=== PATIENT | male | born 1990 ===

== ENCOUNTER 2021-04-25 09:58 | Emergency (ER) | payer MEDICAID, SELFPAY ==
[2021-04-25 10:08] VITALS: BP 135/79; PULSE 70; RESP 18; TEMP 36.7; O2SAT 99; BMI 25.8
== END 2021-04-25 11:17 | disposition left against medical advice (07) ==
PROVIDERS: Emergency Provider Emergency Medicine
DX: G44.009 Cluster headache syndrome, unspecified, not intractable (principal); F41.9 Anxiety disorder, unspecified; Z79.899 Other long term (current) drug therapy
CPT/HCPCS: 99281

== ENCOUNTER 2023-07-03 06:48 | Emergency (ER) | payer MEDICAID, SELFPAY ==
[2023-07-03 07:07] VITALS: BP 118/71; PULSE 57; RESP 17; TEMP 36.7; O2SAT 100; BMI 21.9
--- NOTE | 2023-07-03 07:54 | ED.FALL ---
HPI - Fall General Chief Complaint: Fall Stated Complaint: fell downstairs, landed on L arm Time Seen by Provider: 07/03/23 07:26 Source: patient Mode of arrival: ambulatory Limitations: no limitations History of Present Illness HPI Narrative: This is a 33-year-old male without significant medical history presenting to the emergency department with complaints of left-sided shoulder/forearm pain status post slip and fall, patient reports he was rushing down the steps, he fell on to his left side/ arm last night around 8 pm. L sided upper extremity pain worse w/ overhead movements. No head strike or lOC. Was able to get up from the ground w/o difficulty. No other reported injuries. Denies CP, sob, headache, vision changes, dizziness, numbness, tingling, abd pain. Not on thinners. Related Data Previous Rx's Medication Instructions Recorded ketorolac 10 mg tablet 10 mg PO TID PRN pain 5 days #15 07/03/23 tabs Allergies Allergy/AdvReac Type Severity Reaction Status Date / Time SEASONAL ALLERGIES Allergy Mild NASAL Uncoded 03/12/20 16:02 STUFFYNESS Review of Systems Review of Systems: Constitutional : No Weight loss, No Fever, No Chills, No Fatigue, No Malaise ENT/Mouth : No sore throat, No Rhinorrhea Eyes: No Eye Pain, No Swelling, No Redness Cardiovascular : No Chest Pain, No SOB, No Dyspnea on Exertion, No Orthopnea, No Edema, No Palpitations Respiratory : No Cough, No Sputum, No Wheezing Gastrointestinal : No Nausea, No Vomiting, No Diarrhea, No Constipation, No abdominal Pain, No Hematochezia, No Melena Genitourinary : No Dysuria, No Urinary Frequency, No Hematuria, Musculoskeletal : + joint pain, No Myalgias, No Joint Swelling Skin : No Skin Lesions, No rash Neuro : No Weakness, No Numbness, No Dizziness, No Headache Psych : No Anxiety/Panic, No Depression All other systems reviewed and are negative Yes all other systems are reviewed and are negative PMFSH Past Medical History Attestation statement: The following information was validated with the patient. Source: old records reviewed and nursing notes reviewed Onset Date is defined in the Problem List Problems that require an onset date and time if occurred within 24 hrs of arrival to the ED Aortic Dissection and Rupture; Neurologic impairment; Cardiopulmonary Arrest; Endotracheal Intubation; Insertion or Replacement of Mechanical Circulatory Assist Device Medical History Depression Anxiety Headache Social History Social History Advance Directives: No Physical Exam Vital Signs: Vital Signs: Last Vital Signs Temp 98.1 F 07/03/23 07:07 Pulse 57 07/03/23 07:07 Resp 17 07/03/23 07:07 BP 118/71 07/03/23 07:07 Pulse Ox 100 07/03/23 07:07 O2 Del Method Room Air 07/03/23 07:07 BMI result Body Mass Index 21.9 vss Appearance: Alert.? Oriented X3.? No acute distress.? Head: Normocephalic, atraumatic, no step-offs or deformities Eyes: Pupils equal, round and reactive to light.? CVS: Normal heart rate and rhythm.? Pulses normal.? Respiratory: No respiratory distress.? Breath sounds normal.? Abdomen: Soft and nontender.? Skin: Skin warm and dry.? Normal skin color.? Normal skin turgor.? Extremities: No lower extremity edema.? No calf ttp. 5/5 strength to bilateral upper and lower extremities 2+ radial pulses and brachial pulses equal and b/l. + ttp to L distal clavical and l bicep also noted to have L sided painful overhead movements. Normal RUE. No wrist drop.Normal sensation distally. Cap refil < 2 seconds equal and b/l. Back: No midline tenderness, no C-spine tenderness, full range of motion, no CVA tenderness bilaterally Neuro: Oriented X 3.? No motor deficit.? No sensory deficit. CN 2-12 intact Course Reevaluation(s) Reevaluation #1: patient refused chest x-ray because he says he is fine and does not think it is anything wrong with his chest. Breath sounds present unlikely in flail chest pneumothorax. Time: 08:02 Reevaluation #2: X-ray of left forearm no acute fracture subluxation of the left forearm. X-ray of left shoulder pending. Time: 08:09 Reevaluation #3: X-ray of left shoulder no acute fracture subluxation of left shoulder. Will give Toradol for pain will have him follow-up with the orthopedic team. Again patient refused chest x-ray. Educated patient on diagnosis and treatment plan, answered all question, patient verbalizes understanding. At this time patient will be discharged home, advised to return with new or worsening symptoms. Educated on worrisome signs and symptoms and when to return. At this time I feel comfortable discharge home. Time: 08:15 Medical Decision Making Medical Decision Making MDM Narrative: 33-year-old male presents with complaints of left arm pain status post fall down steps. Physical exam No lower extremity edema.? No calf ttp. 5/5 strength to bilateral upper and lower extremities 2+ radial pulses and brachial pulses equal and b/l. + ttp to L distal clavical and l bicep also noted to have L sided painful overhead movements. Normal RUE. No wrist drop.Normal sensation distally. Cap refil < 2 seconds equal and b/l. GCS- 15, NIHSS- 0 ( no indication for head imaging normal neuro) Plan- imaging of LUE. Unlikely fx/ dislocation, threat to limb/ NV compromise. Sprain or strian likely vs ligamentous or tendon injury. No signs of traumatic injury to chest/ abd/ pelvis. No signs of stroke, posterior stroke, ICH, flail chest, pneumothorax. Differential Diagnosis Differential Diagnoses: The differential diagnosis associated with the presentation includes Plan- imaging of LUE. Unlikely fx/ dislocation, threat to limb/ NV compromise. Sprain or strian likely vs ligamentous or tendon injury. No signs of traumatic injury to chest/ abd/ pelvis. No signs of stroke, posterior stroke, ICH, flail chest, pneumothorax. Admission/Observation Consideration of admission/observation: Escalation of care including admission/observation considered unlikely Independent Interpretation I performed an independent interpretation of an: Plain X-Ray (XR/XR shoulder LT min 2V IMPRESSION: 1. No acute fracture or subluxation of the left shoulder. XR/XR forearm LT 2V IMPRESSION: No acute fracture or subluxation of the left forearm.) Radiology Impression Discussion of test interpretation with radiology: I have reviewed the radiologist's reading. Discharge Plan Discharge Clinical Impression: Arm pain, left, Fall Patient Disposition: Home, Self-Care Instructions: Fall Prevention (ED), Arm Pain (ED) Additional Instructions: Take your medications as prescribed. If you were prescribed antibiotics today, it is important that you take your medication to their entirety, do not skip any doses, do not finish them early. Follow-up with your primary care provider this week. Return to the emergency department with new or worsening symptoms. Such as fevers, chills, chest pain, shortness of breath, nausea, vomiting, dizziness, headache, vision changes, lethargy In case of emergency call 911 Toradol has been sent to your pharmacy, you tolerated this well in the department. Please take this as prescribed do not take this with ibuprofen, or other NSAIDs, do not mix this with alcohol. Side effects of this medication including increased risk for bleeding and possible kidney injury. This could be an issue with a ligament or tendon please follow-up with the orthopedic team. XR/XR forearm LT 2V IMPRESSION: No acute fracture or subluxation of the left forearm. XR/XR shoulder LT min 2V IMPRESSION: 1. No acute fracture or subluxation of the left shoulder. Prescriptions: New ketorolac 10 mg tablet 10 mg PO TID PRN (Reason: pain) 5 Days Qty: 15 0RF Referrals: Physician,Unknown J [Primary Care Provider] - 2 days [facility] [place] [facility] [Provider Group] - 2 days Stand Alone Forms: Work/School Release
== END 2023-07-03 08:26 | disposition home or self-care (01) ==
PROVIDERS: Emergency Provider Emergency Medicine
DX: S40.022A Contusion of left upper arm, initial encounter (principal); S40.012A Contusion of left shoulder, initial encounter; M25.512 Pain in left shoulder; W10.9XXA Fall (on) (from) unspecified stairs and steps, initial encounter; Y93.9 Activity, unspecified; Y92.9 Unspecified place or not applicable; Y99.9 Unspecified external cause status
CPT/HCPCS: 73030; 73090; 96372; 99283; 99284; J1885

== ENCOUNTER 2023-08-02 12:46 | Emergency (ER) | payer MEDICAID, SELFPAY ==
--- NOTE | ~2023-08-02 | XR_ITS ---
EXAMINATION: 1. Left foot. 2. Left ankle. CLINICAL INFORMATION: Fall down the stairs. Pain in the foot. COMPARISON: None. TECHNIQUE: 1. Left foot. 3 views 2. Left ankle. 3 views FINDINGS: 1. Left foot. There is no fracture. No dislocation. Bone and joint are normal. 2. Left ankle. No fracture or dislocation. Ankle mortise is congruent. XR/XR ankle LT min 3V IMPRESSION: 1. Left foot. Normal. 2. Left ankle. Normal.
--- NOTE | ~2023-08-02 | XR_ITS ---
EXAMINATION: XR WRIST, RIGHT XR HAND, RIGHT CLINICAL INFORMATION: Injury COMPARISON: None available. TECHNIQUE: PA, lateral, and oblique views of the right wrist and PA, lateral, and oblique views of the right hand FINDINGS: RIGHT WRIST: The bones and soft tissues are normal. No fracture. Alignment is anatomic. Joint spaces are maintained. No erosions or soft tissue calcifications. RIGHT HAND: There is a fracture of the distal shaft of the fifth metacarpal bone. There is slight radial and volar angulation of the fifth metacarpal head respect to the more proximal shaft. No other fracture. Joint spaces are normal. There is mild soft tissue swelling adjacent to the fracture. XR/XR hand wrist RT IMPRESSION: Right fifth metacarpal distal shaft fracture.
--- NOTE | ~2023-08-02 | XR_ITS ---
EXAMINATION: 1. Left foot. 2. Left ankle. CLINICAL INFORMATION: Fall down the stairs. Pain in the foot. COMPARISON: None. TECHNIQUE: 1. Left foot. 3 views 2. Left ankle. 3 views FINDINGS: 1. Left foot. There is no fracture. No dislocation. Bone and joint are normal. 2. Left ankle. No fracture or dislocation. Ankle mortise is congruent. XR/XR foot LT min 3V IMPRESSION: 1. Left foot. Normal. 2. Left ankle. Normal.
[2023-08-02 13:15] VITALS: BP 117/60; PULSE 76; RESP 18; TEMP 36.4; O2SAT 100; BMI 23.4
--- NOTE | 2023-08-02 13:15 | ED.FALL ---
HPI - Fall General Chief Complaint: Fall Stated Complaint: Fall 1 Wk Ago/R hand pain/L foot pain Time Seen by Provider: 08/02/23 17:01 Related Data Previous Rx's Medication Instructions Recorded ketorolac 10 mg tablet 10 mg PO TID PRN pain 5 days #15 07/03/23 tabs acetaminophen 500 mg tablet 1,000 mg (2 x 500 mg) PO QID PRN 08/02/23 pain #30 tabs ibuprofen 600 mg tablet 600 mg PO Q6H PRN pain #20 tabs 08/02/23 oxycodone 5 mg tablet 5 mg PO Q6H PRN pain #14 tabs 08/02/23 Allergies Allergy/AdvReac Type Severity Reaction Status Date / Time SEASONAL ALLERGIES Allergy Mild NASAL Uncoded 08/02/23 13:15 STUFFYNESS PMFSH Past Medical History Medical History Depression Anxiety Headache Social History Social History Advance Directives: No Advance Directives Information Provided: No Physical Exam Vital Signs: Vital Signs: Last Vital Signs Temp 97.6 F 08/02/23 13:15 Pulse 72 08/02/23 19:09 Resp 16 08/02/23 19:09 BP 117/60 08/02/23 13:15 Pulse Ox 98 08/02/23 19:09 O2 Del Method Room Air 08/02/23 19:09 BMI result Body Mass Index 23.4 Course Course Course Narrative: RME:?33 yo male here w/ right hand pain, left foot/ankle pain s/p fall down 4-5 stairs. -hs or loc. difficulty closing right fist. has been taking tylenol and ibuprofen at home without relief. xrs ordered Full HPI, ROS and PE to be performed by the primary ED provider. Discharge Plan Discharge Clinical Impression: Fracture of hand, Sprain of left foot Patient Disposition: Home, Self-Care Additional Instructions: x-ray of your foot was negative no fracture was seen so likely it has a sprain The right hand showed a fracture of a bone in the hand so we applied a splint and you should follow with orthopedics for best treatment They will decide if it needs a pin or a cast or any further treatment Return any time any worse condition or any concerns I wrote a work note for 5 days but if her boss has light duty were you do not have to get your splint wet or use your right hand heavily you may be able to work if he has some light duty Prescriptions: New acetaminophen 500 mg tablet 1,000 mg PO QID PRN (Reason: pain) Qty: 30 0RF ibuprofen 600 mg tablet 600 mg PO Q6H PRN (Reason: pain) Qty: 20 0RF oxycodone 5 mg tablet 5 mg PO Q6H PRN (Reason: pain) Qty: 14 0RF Rx Instructions: Partial Fill upon patient request. No Action ketorolac 10 mg tablet 10 mg PO TID PRN (Reason: pain) 5 Days Qty: 15 0RF Referrals: Yayo Duke MD [Physician] - ( right 5th metacarpal fracture) Stand Alone Forms: Work/School Release Interventions: ED Discharge Assessment Last Done: 08/02/23 19:13 Discharge Date/Time: 08/02/23 19:15
--- NOTE | 2023-08-02 18:51 | ED.FALL ---
HPI - Fall General Chief Complaint: Fall Stated Complaint: Fall 1 Wk Ago/R hand pain/L foot pain Time Seen by Provider: 08/02/23 17:01 History of Present Illness HPI Narrative: patient complains of right hand pain and left foot pain for the last several days, he fell down some steps and put out his hand to protect himself he thinks it was 5 days ago, he has been going to walk on the foot, pain is mostly at the base of his 2nd toe and the distal end of his foot He did not hit his head or injure his neck he has no neck pain no back pain no headache no head trauma no other extremity pains except right hand on the pinky side and left foot Related Data Previous Rx's Medication Instructions Recorded ketorolac 10 mg tablet 10 mg PO TID PRN pain 5 days #15 07/03/23 tabs acetaminophen 500 mg tablet 1,000 mg (2 x 500 mg) PO QID PRN 08/02/23 pain #30 tabs ibuprofen 600 mg tablet 600 mg PO Q6H PRN pain #20 tabs 08/02/23 oxycodone 5 mg tablet 5 mg PO Q6H PRN pain #14 tabs 08/02/23 Allergies Allergy/AdvReac Type Severity Reaction Status Date / Time SEASONAL ALLERGIES Allergy Mild NASAL Uncoded 08/02/23 13:15 STUFFYNESS PMFSH Past Medical History Source: nursing notes reviewed Medical History Depression Anxiety Headache Social History Social History Advance Directives: No Advance Directives Information Provided: No Physical Exam Vital Signs: Vital Signs: Last Vital Signs Temp 97.6 F 08/02/23 13:15 Pulse 76 08/02/23 13:15 Resp 18 08/02/23 13:15 BP 117/60 08/02/23 13:15 Pulse Ox 100 08/02/23 13:15 O2 Del Method Room Air 08/02/23 13:15 BMI result Body Mass Index 23.4 general appearance no distress Head is normocephalic atraumatic Neck is supple nontender Respiratory no distress Extremities the left hand has swelling in the right 5th metacarpal area, neurovascular intact distal, it is tender in this area of the right 5th metacarpal The left foot had no obvious swelling, skin was intact no deformities no redness no signs of infection There was tenderness both dorsal and plantar in the distal forefoot around the base of the 2nd toe Ankle had full range of motion there was no tenderness around the ankle Other extremities and joints normal Course Course Course Narrative: x-ray of left foot and ankle was normal, no evidence of fracture The right hand x-ray showed fracture of the distal shaft of the 5th metacarpal with slight radial and volar angulation, no other fractures An ulnar gutter splint was applied, neurovascular intact after application of the splint and patient was discharged to follow with orthopedics Discharge Plan Discharge Clinical Impression: Fracture of hand, Sprain of left foot Patient Disposition: Home, Self-Care Additional Instructions: x-ray of your foot was negative no fracture was seen so likely it has a sprain The right hand showed a fracture of a bone in the hand so we applied a splint and you should follow with orthopedics for best treatment They will decide if it needs a pin or a cast or any further treatment Return any time any worse condition or any concerns I wrote a work note for 5 days but if her boss has light duty were you do not have to get your splint wet or use your right hand heavily you may be able to work if he has some light duty Prescriptions: New acetaminophen 500 mg tablet 1,000 mg PO QID PRN (Reason: pain) Qty: 30 0RF ibuprofen 600 mg tablet 600 mg PO Q6H PRN (Reason: pain) Qty: 20 0RF oxycodone 5 mg tablet 5 mg PO Q6H PRN (Reason: pain) Qty: 14 0RF Rx Instructions: Partial Fill upon patient request. No Action ketorolac 10 mg tablet 10 mg PO TID PRN (Reason: pain) 5 Days Qty: 15 0RF Referrals: Yayo Duke MD [Physician] - ( right 5th metacarpal fracture) Stand Alone Forms: Work/School Release
[2023-08-02 19:09] VITALS: PULSE 72; RESP 16; O2SAT 98
== END 2023-08-02 19:15 | disposition home or self-care (01) ==
PROVIDERS: Emergency Provider Emergency Medicine
DX: S62.326A Displaced fracture of shaft of fifth metacarpal bone, right hand, initial encounter for closed fracture (principal); S93.692A Other sprain of left foot, initial encounter; W10.8XXA Fall (on) (from) other stairs and steps, initial encounter; Y93.9 Activity, unspecified; Y92.9 Unspecified place or not applicable; Y99.9 Unspecified external cause status
CPT/HCPCS: 29125; 73110; 73130; 73610; 73630; 99283

== ENCOUNTER 2023-08-06 14:56 | Emergency (ER) | payer MEDICAID, SELFPAY ==
[2023-08-06 15:03] VITALS: BP 112/56; PULSE 67; RESP 16; TEMP 36.4; O2SAT 99; BMI 22.6
--- NOTE | 2023-08-06 15:05 | ED.GENADULT ---
HPI - General Adult General Chief complaint: Extremity Injury, Upper Stated complaint: R arm tingling/numbness/splint issues Time Seen by Provider: 08/06/23 15:37 Source: patient Mode of arrival: ambulatory Limitations: no limitations History of Present Illness HPI narrative: Patient is a 33 year old assigned male at with no reported medical history presenting to the emergency department today for a splint examination. Patient states that he broke his hand after falling down the stairs on 08/02/2023 and was placed in a splint. Patient states that his fingers have felt tingly and he thinks the splint is too tight. Patient denies any dizziness, lightheadedness, abdominal pain, nausea, vomiting, fever, chills, blurry vision, double vision, loss of vision, chest pain, difficulty breathing, shortness of breath, back pain, night sweats, pain with urination, increased urinary frequency, increased urinary urgency, blood in his urine or stool, syncope or a near syncopal episode, bowel incontinence, bladder incontinence, bowel retention, bladder retention, or any other complaints at this time. Onset (ago): day(s) (4) Location: right and upper extremity Radiation: non-radiation Severity: mild Severity scale (1-10): 2 Relieving factors: none Exacerbating factors: none Associated symptoms: denies other symptoms Treatments prior to arrival: none Related Data Previous Rx's Medication Instructions Recorded ketorolac 10 mg tablet 10 mg PO TID PRN pain 5 days #15 07/03/23 tabs acetaminophen 500 mg tablet 1,000 mg (2 x 500 mg) PO QID PRN 08/02/23 pain #30 tabs ibuprofen 600 mg tablet 600 mg PO Q6H PRN pain #20 tabs 08/02/23 oxycodone 5 mg tablet 5 mg PO Q6H PRN pain #14 tabs 08/02/23 Allergies Allergy/AdvReac Type Severity Reaction Status Date / Time SEASONAL ALLERGIES Allergy Mild NASAL Uncoded 08/02/23 13:15 STUFFYNESS Review of Systems Constitutional: Constitutional: Reports no additional constitutional complaints, Denies chills, Denies fever(s) and Denies night sweats Eyes: Eyes: Reports no additional eye complaints, Denies blurry vision, Denies change in vision, Denies diplopia, Denies eye discharge, Denies loss of vision and Denies eye pain ENT: Denies dizziness Cardiovascular: Cardiovascular: Reports no additional cardiovascular complaints, Denies chest pain, Denies lightheadedness, Denies Loss of Consciousness and Denies dyspnea Respiratory: Respiratory: Reports no additional respiratory complaints and Denies dyspnea Gastrointestinal: Gastrointestinal: Reports no additional gastrointestinal complaints, Denies abdominal pain, Denies melena, Denies hematochezia, Denies change in bowel habits and Denies change in stool character Genitourinary: Genitourinary: Reports no additional male genitourinary complaints, Denies hematuria, Denies oliguria, Denies difficulty urinating, Denies dysuria, Denies urinary frequency, Denies urinary hesitancy, Denies urinary incontinence and Denies urinary urgency Musculoskeletal: Musculoskeletal: Reports no additional musculoskeletal complaints, Denies numbness and Denies tingling Comments: right ulnar gutter splint in place Neurologic: Denies dizziness, Denies loss of vision, Denies numbness and Denies tingling Psychiatric: Psychiatric: Reports no additional psychiatric complaints Endocrine: Endocrine: Reports no additional endocrine complaints Hematologic/Lymphatic: Hematologic/Lymphatic: Reports no additional hematologic/lymphatic complaints Allergic/Immunologic: Allergic/Immunologic: Reports no additional allergic/immunologic complaints PMFSH Past Medical History Attestation statement: The following information was validated with the patient. Source: old records reviewed and nursing notes reviewed Medical History Depression Anxiety Headache Social History Social History Advance Directives: No Advance Directives Information Provided: Yes Physical Exam ED Vital Signs: Vital Signs - 24 hr 08/06/23 15:03 Temperature 97.6 F Pulse Rate 67 Respiratory Rate 16 Blood Pressure 112/56 L Pulse Oximetry 99 Oxygen Delivery Method Room Air BMI result Body Mass Index 22.6 Const General: cooperative, no acute distress, alert and awake Nutritional Appearance: well nourished Orientation/consciousness: patient oriented x3 Limitations: no limitations HENMT Head: Yes normal to inspection and Yes atraumatic Ears: hearing grossly normal bilaterally and external ears normal General nose exam: Normal external nose present, no nasal discharge noted and no epistaxis Face and sinus: Yes normal facial exam, No abrasion and No laceration Mouth: Normal oral and palatal mucosa present, no drooling and no muffled voice Eyes General: appearance normal, both eyes and all related structures Periorbital: periorbital findings normal Eyelids: Yes eyelids normal Conjunctivae: conjunctivae normal Pupils: Equal, round and reactive pupils present EOM: EOMs intact bilaterally Neck Neck: Yes normal visual inspection, Yes full ROM and Yes no lymphadenopathy Chest Chest palpation & inspection: normal inspection of the chest Resp Effort & Inspection: normal respiratory effort and able to speak in complete sentences GI Inspection: Yes normal to inspection Neuro General: patient oriented x3 and moves all extremities Cranial nerves: Yes Equal, round and reactive pupils present Cognition (Neuro): normal cognition Motor exam (neuro): 5/5 motor strength present throughout Sensory Exam: Normal double simultaneous stimulation for sensation Coordination: [id number] test normal Extrem Other: patient's right wrist / hand is in an ulnar gutter splint General: Yes capillary refill normal Psych Appearance: grossly normal Mental Status: mental status grossly normal Affect: normal affect Attitude: cooperative Thought process: Normal thought process present Thought content: Normal thought content present Insight: Good insight present (Psych) Course Course Course Narrative: RME: 33 yold male with known hand fracture and splint on presents to the ED for nubmness in right hand and thinks splint is too tight. no new trauma. capillar refills intact and sensation intact. patient will be evaluated in [facility] Procedures Orthopedic Splinting/Casting Injury #1: Side: right Upper Extremity Injury Location: wrist and hand Upper Extremity Immobilizer: sling/shoulder immobilizer and ulnar gutter Medical Decision Making Medical Decision Making MDM Narrative: Patient is a 33 year old assigned male at with no reported medical history presenting to the emergency department today for a splint check. Patient's physical exam showed an intact right ulnar gutter splint with good cap refill and PMS to the right hand. However, patient felt as though the splint was too tight. I explained my physical exam findings to the patient. I answered all questions asked by the patient. Patient's right ulnar gutter splint was removed, without incident. Patient's PMS was intact prior to and after splint removal. I applied a new ulnar gutter splint to the right hand, without incident. Patient's PMS was intact prior to and after splint placement. Patient was also given a sling with sling instructions and his right hand / wrist was placed in said sling, without incident. Patient's PMS was intact prior to and after sling placement. I explained to the patient that if he begins to feel any numbness or tingling in his right hand / wrist / or fingers, he should loosen the external TRAV wraps. I explained that if he is loosening so much he is seeing the underlying ortho-glass layer, he should return to the emergency department immediately for splint replacement. I stressed the importance of the patient taking his medication as prescribed. I stressed the importance of the patient following up with his primary care provider and an orthopedic provider. I stressed the importance of the patient returning to the emergency department immediately if his symptoms were to worsen or if he were to develop any dizziness, shortness of breath, difficulty breathing, chest pain, blurry vision, loss of vision, nausea, vomiting, abdominal pain, fever, chills, back pain, or any other complaints. Patient verbalized agreement and understanding with this treatment plan and discharge. Differential Diagnosis Differential Diagnoses: The differential diagnosis associated with the presentation includes Splint replacement Splint evaluation Right 5th met fracture Hand fracture Admission/Observation Consideration of admission/observation: Escalation of care including admission/observation considered Patient would have been admitted to the hospital had his clinical presentation warranted hospital admission. Discharge Plan Discharge Clinical Impression: Fracture of hand Patient Disposition: Home, Self-Care Instructions: Hand Fracture (ED) Additional Instructions: Follow up with your primary care provider and an orthopedic provider. Return to the emergency department immediately if your symptoms worsen or if you develop any dizziness, shortness of breath, difficulty breathing, chest pain, blurry vision, loss of vision, nausea, vomiting, abdominal pain, fever, chills, back pain, or any other complaints. Prescriptions: No Action ketorolac 10 mg tablet 10 mg PO TID PRN (Reason: pain) 5 Days Qty: 15 0RF acetaminophen 500 mg tablet 1,000 mg PO QID PRN (Reason: pain) Qty: 30 0RF ibuprofen 600 mg tablet 600 mg PO Q6H PRN (Reason: pain) Qty: 20 0RF oxycodone 5 mg tablet 5 mg PO Q6H PRN (Reason: pain) Qty: 14 0RF Rx Instructions: Partial Fill upon patient request. Referrals: [facility] [Provider Group] (Call to establish and follow up with a primary care provider. If you already have a primary care provider, please follow up with them.) [facility], [place] [Provider Group] (Call to establish and follow up with a primary care provider. If you already have a primary care provider, please follow up with them.) [facility] [Provider Group] (Call to establish and follow up with a primary care provider. If you already have a primary care provider, please follow up with them.) [facility] [Provider Group] (Call to establish and follow up with an orthopedic provider. ) Stand Alone Forms: Work/School Release Interventions: ED Discharge Assessment Last Done: 08/06/23 16:24 Discharge Date/Time: 08/06/23 17:03 Print Language: Sinhala
== END 2023-08-06 17:03 | disposition home or self-care (01) ==
LOC: HO.ED 16:07
PROVIDERS: Emergency Provider Emergency Medicine Emergency Medical Services
DX: M25.531 Pain in right wrist (principal); R20.0 Anesthesia of skin
CPT/HCPCS: 29125; 99282; 99284

== ENCOUNTER 2023-08-09 10:21 | Outpatient (REF) | payer MEDICAID, SELFPAY ==
--- NOTE | ~2023-08-09 | XR_ITS ---
EXAMINATION: XR HAND, RIGHT CLINICAL INFORMATION: Right hand pain. COMPARISON: 08/02/2023 TECHNIQUE: PA, lateral, and oblique views of the right hand. FINDINGS: Again seen is a transverse fracture of the fifth metacarpal neck with slight apex dorsal angulation, similar to prior. Alignment is unchanged as compared to prior. Early changes of healing are suspected with softening of the fracture margins. No new fractures are identified. Joints appear well-preserved. No erosions. No soft tissue calcifications. XR/XR hand RT min 3V IMPRESSION: Unchanged alignment of the right fifth metacarpal neck fracture. No new fractures are identified.
== END 2023-08-09 10:22 | disposition home or self-care (01) ==
LOC: HO.HOSX 10:21
PROVIDERS: Visit Provider Orthopaedic Surgery
DX: S62.336A Displaced fracture of neck of fifth metacarpal bone, right hand, initial encounter for closed fracture (principal); W10.9XXA Fall (on) (from) unspecified stairs and steps, initial encounter; Y93.9 Activity, unspecified; Y92.9 Unspecified place or not applicable; Y99.9 Unspecified external cause status
CPT/HCPCS: 73130; 99202

== ENCOUNTER 2023-08-09 13:45 | Outpatient (AMB) | payer MEDICAID, SELFPAY ==
[2023-08-09 14:16] VITALS: BMI 22.6
--- NOTE | 2023-08-09 14:16 | A.OFFVIS_ITS ---
Intake Vital Signs 08/09/23 14:16 Height 5 ft 6 in Weight 140 lb BMI 22.6 Intake Visit Reasons: N/P FX of hand RT pinky DOI? ED fu 08/06/ Confirmed Intake Note: Richard 33 yr old male who is right hand dominant, presents today for his right hand injury s/p falling approx 2 weeks ago. Reports he fell down some steps and put out his hand to protect himself. He is not sure how he injured his hand. Seen in ED on 08/02/23 where xrays were taken and placed in a splint. Currently states his pain is a 5/10 and worsens at night time. He is also having numbness as well. States he is not able to make a full close fist, feels tightness and weakness. Allergies SEASONAL ALLERGIES Allergy (Mild, Uncoded 08/09/23 14:24) NASAL STUFFYNESS HPI N/P FX of hand RT pinky DOI? ED fu 08/06/ Confirmed HPI Details Richard is a 33 year old right hand dominant man who presents for a right small finger fracture, S/P fall, DOI: ~07/28/23. He was seen in the ED on 08/02/23 and placed in an ulnar gutter splint. He returned on 08/06/23 with complaints of small finger numbness, and a newer, looser, splint was applied. He presents today with complaints of pain in his small finger, which is worse at night. He says his pain is mostly at the base of his finger, and is somewhat present in his ring finger as well He reports tightness & weakness, and says he is unable to make a full fist without pain. He says he continues to have numbness in the small finger, which was not present prior to his injury. He does say this has improved since they re-splinted his finger on 08/06/23. He says he boxes occasionally, and is an occasional smoker. He would like to know when he can return to boxing training. He works spraying foam insulation in houses. He says he has been working light duty without use of his right hand. [facility] Medical History (Updated 08/09/23 @ 14:46 by Dudley Rodriguez) Migraines Depression Anxiety Headache Social History (Updated 08/09/23 @ 14:25 by Kiara Cigaran, CCMA) Current occupational status: employed Current occupation: rt hand/ spray foam installation Review of Systems Const All systems reviewed & are unremarkable except as noted in HPI and below Physical Exam Vital Signs: BMI result Body Mass Index 22.6 Const General: cooperative, healthy appearing and no acute distress Orientation/consciousness: patient oriented x3 HEENT Head: Yes normocephalic and Yes atraumatic Eyes EOM: EOMs intact bilaterally Resp Effort & Inspection: normal respiratory effort and able to speak in complete sentences Cardio Jugular venous distension: no JVD Skin General skin exam: turgor normal Rashes: no rashes Neuro General: patient oriented x3 Extrem Other: Evaluation of Right Upper Extremity: The patient is alert, oriented, and in no acute distress Neuro: Median, Ulnar, Radial nerves motor and sensory intact and sensation is normal to the tips of all digits Vascular: Cap refill brisk ROM: We worked on gentle ROM exercises today in clinic Before leaving clinic he could bring his fingers almost closed to a fist and back into full extension Skin: No lacerations or abrasions. General: No Erythema or evidence of infection. Tender over the fracture site No rotational mal-alignment Originally had some stiffness but with encouragement he can bring his fingers including the small finger, closed to a fist Radiographs: 3 views of the right hand, with attention to the small finger, were taken and viewed by me today in clinic. They show a 5th metacarpal neck fracture with about 25 degrees of apex dorsal angulation.. Psych Appearance: grossly normal Affect: normal affect Attitude: cooperative Office Procedures Fracture Care Details: Fracture care metacarpal fracture 97058 Fracture Billing Code: Fracture Billing Code Assessment & Plan Assessment & Plan (1) Fracture of neck of fifth metacarpal bone of right hand: Code(s): S62.336A - Displaced fracture of neck of fifth metacarpal bone, right hand, initial encounter for closed fracture Plan Assessment & Plan: 1. Right 5th metacarpal neck fracture, From a fall, DOI: ~07/28/23 I educated him about this condition I discussed non-operative treatment options I recommend we manage this non-operatively, and he is in agreement I discussed activity modification and the importance of maintaining his ROM We worked on ROM exercises today in clinic He is to lift nothing heavier than a cellphone for the next 2 weeks, and should be mindful to avoid any falls or impact activities such as boxing He was fitted for a velcro wrist splint, to be worn with daily activity when out of the house He should remove his splint when home at rest, as well as at night He was given a note for work restricting him to light duty, with a 2lb weight limit for his right hand for the next 3 weeks He is an occasional smoker and I counselled him on the effects of smoking on bone healing He will follow up in 3 weeks for a ROM check, no X-rays unless he has pain Scribed for Sheryl Leon MD by Dudley Rodriguez, medical staffing coordinator, on 08/09/23 at 2:50 PM, EST. Orders: Orders XR hand RT min 3V Today M79.641 - Pain in right hand Coding Level of Care Code New Pt Level 3 (36154) Diagnoses Fracture of neck of fifth metacarpal bone of right hand S62.336A CPT Codes Fracture Care - Fracture Billing Code: Fracture Billing Code ([id number])
== END 2023-08-09 15:00 | disposition home or self-care (01) ==
PROVIDERS: Visit Provider Orthopaedic Surgery
DX: S62.336A Displaced fracture of neck of fifth metacarpal bone, right hand, initial encounter for closed fracture (principal)
CPT/HCPCS: 99203

== ENCOUNTER 2023-08-31 13:48 | Outpatient (AMB) | payer MEDICAID, SELFPAY ==
--- NOTE | 2023-08-31 13:53 | A.OFFVIS_ITS ---
Intake Intake Visit Reasons: OV - rt fifth metacarpal fx, DOI 08/02/23 Intake Note: Richard is a 33 year old male who presents today for a follow up of his right fifth metacarpal fx, DOI 08/02/23. Patient reports he is doing fine. He states that he is able to make a fist. Having some complaints of feeling pressure in his palm and its radiates up to his right pinky finger. Allergies SEASONAL ALLERGIES Allergy (Mild, Uncoded 08/09/23 14:24) NASAL STUFFYNESS HPI OV - rt fifth metacarpal fx, DOI 08/02/23 HPI Details 33-year-old right hand dominant male who presents in the office today for a follow up of a right small finger fracture, which occurred on 07/28/2023 status post a fall. The patient was last seen by Dr. Leon in the office on 08/09/2023 where activity modification was suggested, to work on ROM exercises, a lifting restrictions were given. He was placed in a velcro wrist splint to be worn with daily activities. He was given a note for work restricting him to light duty, with a 2 lbs weight limit for his right hand for the next 3 weeks. While in the office today the patient reports he is doing fine. He states he is able to make a fist. He reports some complaints of feeling pressure in his palm. [facility] Medical History (Updated 08/09/23 @ 14:46 by Dudley Rodriguez) Migraines Depression Anxiety Headache Social History (Updated 08/09/23 @ 14:25 by Kiara Askew [facility]) Current occupational status: employed Current occupation: rt hand/ spray foam installation Review of Systems Const All systems reviewed & are unremarkable except as noted in HPI and below Physical Exam Const General: cooperative, healthy appearing and no acute distress Resp Effort & Inspection: normal respiratory effort and able to speak in complete s entences Cardio Rate: regular rate Peripheral pulses: Peripheral pulses 2+ throughout GI Palpation (GI): Soft to palpation Skin Lesions: no lesions Rashes: no rashes Extrem Other: Right small finger: Normal to inspection. No ecchymosis, erythema, or edema. No tenderness to palpation over the 5th metacarpal at the fracture site. Able to perform full finger flexion, extension, abduction, adduction, finger cross, okay sign, and thumbs up without deficit. Able to make a closed fist. Sensation intact. Capillary refill is brisk. Assessment & Plan Assessment & Plan (1) Fracture of neck of fifth metacarpal bone of right hand: Code(s): S62.336A - Displaced fracture of neck of fifth metacarpal bone, right hand, initial encounter for closed fracture Plan Mr. Linn is a 33-year-old right hand dominant male who presents in the office today for a follow up of a right small finger fracture, which occurred on 07/28/2023 status post a fall. The patient was last seen by Dr. Leon in the office on 08/09/2023 where activity modification was suggested, to work on ROM exercises, a lifting restrictions were given. He was placed in a velcro wrist splint to be worn with daily activities. He was given a note for work restricting him to light duty, with a 2 lbs weight limit for his right hand for the next 3 weeks. While in the office today the patient reports he is doing fine. He states he is able to make a fist. He reports some complaints of feeling pressure in his palm. 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 Follow up will be PRN, or sooner if needed. Patient Instructions: Scribed by July Conrad medical device sales consultant, for Nidia Whitmore PA-C on 08/31/2023 at 1:49 pm, EST. Coding Level of Care Code Est Pt Level 3 (08293) Diagnoses Fracture of neck of fifth metacarpal bone of right hand S62.336A
== END 2023-08-31 14:17 | disposition home or self-care (01) ==
PROVIDERS: Visit Provider Physician Assistant
DX: S62.336A Displaced fracture of neck of fifth metacarpal bone, right hand, initial encounter for closed fracture (principal)
CPT/HCPCS: 99213

== ENCOUNTER → 2023-08-31 13:48 | Outpatient (BNVA) | payer MEDICAID, SELFPAY | PROVIDERS: Visit Provider Physician Assistant | DX: S62.336D Displaced fracture of neck of fifth metacarpal bone, right hand, subsequent encounter for fracture with routine healing (principal) | CPT/HCPCS: 99212 ==

== ENCOUNTER 2023-09-08 19:19 | Emergency (ER) | payer MEDICAID, SELFPAY | END 2023-09-08 21:00 | disposition left against medical advice (07) | PROVIDERS: Emergency Provider Emergency Medicine | DX: Z53.21 Procedure and treatment not carried out due to patient leaving prior to being seen by health care provider (principal); R51.9 Headache, unspecified; V89.2XXA Person injured in unspecified motor-vehicle accident, traffic, initial encounter; Y93.9 Activity, unspecified; Y92.9 Unspecified place or not applicable; Y99.9 Unspecified external cause status ==

== ENCOUNTER 2023-09-14 10:23 | Outpatient (REF) | payer OTHER, SELFPAY ==
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
== END 2023-09-14 10:24 | disposition home or self-care (01) ==
LOC: HO.HHCX 10:23
PROVIDERS: Visit Provider Internal Medicine
DX: S16.1XXD Strain of muscle, fascia and tendon at neck level, subsequent encounter (principal); S33.5XXD Sprain of ligaments of lumbar spine, subsequent encounter; V89.2XXD Person injured in unspecified motor-vehicle accident, traffic, subsequent encounter
CPT/HCPCS: 72040; 72070; 72110

== ENCOUNTER 2023-10-12 11:25 | Emergency (ER) | payer MEDICAID, SELFPAY ==
--- NOTE | ~2023-10-12 | CT_ITS ---
EXAMINATION: CT HEAD WITHOUT CONTRAST CLINICAL INFORMATION: Severe headaches COMPARISON: 05/19/2019 TECHNIQUE: Contiguous axial imaging was performed from the skull base to vertex without intravenous administration of contrast. This CT examination was performed using dose optimization techniques as appropriate, variously including the following: *Automated exposure control *Adjustment of mA and/or kV according to patient size (this includes techniques or standardized protocols for targeted exams where dose is matched to indication/reason for exam; i.e. extremities or head) *Use of iterative reconstruction technique DLP: 644 mGy-cm FINDINGS: No intra or extra-axial fluid collection, hemorrhage, mass or mass effect. Sulci and ventricles normal. Calvarium is intact. There is extensive mucoperiosteal thickening seen in the right maxillary sinus and mild mucosal thickening seen in the left aspect of the sphenoid sinus. Retrobulbar regions are intact. The mastoids are clear. CT/CT head/brain wo IV con IMPRESSION: Chronic sinus disease. No intracranial acute pathology.
[2023-10-12 11:47] VITALS: BP 134/80; PULSE 61; RESP 19; TEMP 36.6; O2SAT 98; BMI 21.8
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
[2023-10-12] MEDS: Ondansetron ODT 4 MG TAB.RAPDIS TRANSLINGU (19:27)
[2023-10-12] MEDS: Ketorolac Tromethamine 30 MG/ML VIAL IM (19:27)
[2023-10-12 19:44] VITALS: BP 107/63; PULSE 63; RESP 18; TEMP 36.9; O2SAT 100
[2023-10-12 20:33] VITALS: BP 117/72
--- NOTE | 2023-10-12 20:37 | PC.NURSE ---
Pharmacy called for verapamil. not available in pyxis. Resha states will be sent down
[2023-10-12 21:04] VITALS: BP 121/76; PULSE 57; RESP 20; TEMP 36.8; O2SAT 100
[2023-10-12] MEDS: VerapamiL HCL 80 MG TABLET PO (21:20)
[2023-10-12 21:23] VITALS: BP 121/76; PULSE 57; RESP 20; TEMP 36.8; O2SAT 100
== END 2023-10-12 21:23 | disposition home or self-care (01) ==
PROVIDERS: Emergency Provider Emergency Medicine
DX: G44.009 Cluster headache syndrome, unspecified, not intractable (principal)
CPT/HCPCS: 70450; 96372; 99283; 99284; J1885

== ENCOUNTER 2023-10-13 14:30 | Emergency (ER) | payer MEDICAID, SELFPAY ==
[2023-10-13 14:37] VITALS: BP 121/76; PULSE 76; RESP 19; TEMP 36.6; O2SAT 100; BMI 21.8
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
[2023-10-13] MEDS: Metoclopramide HCl 10 MG TABLET PO (14:50)
[2023-10-13] MEDS: diphenhydrAMINE HCL 25 MG CAPSULE PO (14:50)
[2023-10-13] MEDS: Ketorolac Tromethamine 15 MG/ML VIAL 30 MG IM (14:51)
[2023-10-13 15:35] VITALS: BP 121/76; PULSE 76; RESP 19; TEMP 36.6; O2SAT 100
== END 2023-10-13 15:36 | disposition home or self-care (01) ==
PROVIDERS: Emergency Provider Emergency Medicine
DX: G44.009 Cluster headache syndrome, unspecified, not intractable (principal)
CPT/HCPCS: 96372; 99283; 99284; J1885

== ENCOUNTER 2023-11-03 17:14 | Outpatient (REF) | payer MEDICAID, SELFPAY | END 2023-11-03 17:15 | disposition home or self-care (01) | LOC: HO.LNP 17:14 | PROVIDERS: Visit Provider Family Medicine | DX: K12.1 Other forms of stomatitis (principal) | CPT/HCPCS: 87255 ==

== ENCOUNTER 2023-11-08 16:57 | Outpatient (REF) | payer MEDICAID, SELFPAY | END 2023-11-08 16:58 | disposition home or self-care (01) | LOC: HO.HHCLNP 16:57 | PROVIDERS: Visit Provider Family Medicine | DX: K12.1 Other forms of stomatitis (principal) | CPT/HCPCS: 87255 ==

== ENCOUNTER 2023-12-19 10:30 | Outpatient (REF) | payer MEDICAID, SELFPAY ==
[2023-12-19 11:43] LABS: MANUAL DIFF FLAG NO
[2023-12-19 11:51] LABS: Basophils Absolute Auto 0.1 X10*3/uL (0.0-0.2); Basophils Percent Auto 0.9 % (0-2); Eosinophils Absolute Auto 0.5 X10*3/uL (0.0-0.4); Eosinophils Percent Auto 6.1 % (0-4); Hematocrit 43.3 % (42.0-52.0); Hemoglobin 14.2 g/dl (14.0-18.0); Imm Gran Abs Auto 0.03 X10*3/uL (0.00-0.03); Imm Gran Pct Auto 0.4 % (0.0-0.4); Lymphocytes Absolute Auto 1.9 X10*3/uL (1.2-4.9); Lymphocytes Percent Auto 23.7 % (20-40); Mean Corpuscular HGB Conc 32.8 g/dl (31.0-36.0); Mean Corpuscular Volume 88.4 fL (80.0-98.0); Mean Platelet Volume 8.5 fL (9.4-12.4); Monocytes Absolute Auto 0.5 X10*3/uL (0.1-1.2); Monocytes Percent Auto 6.3 % (2-11); Neutrophils Absolute Auto 5.1 x10*3/uL (2.0-8.3); Neutrophils Percent Auto 62.6 % (45-73); Platelet Count 319 X10*3/uL (160-400); Red Cell Distribution Width 12.8 % (11.0-16.0); White Blood Count 8.2 X10*3/uL (4.8-10.8)
[2023-12-19 12:09] LABS: Estimated Average Glucose 103 mg/dL; Hemoglobin A1c % 5.2 % (<6.0)
[2023-12-19 12:45] LABS: Alanine Aminotransferase 30 U/L (0-40); Anion Gap 13 (12-20); Aspartate Amino Transferase 22 U/L (5-37); Bilirubin Direct 0.2 mg/dL (0.0-0.5); Bilirubin Total 0.6 mg/dL (0.0-1.0); Blood Urea Nitrogen 17 mg/dL (9-16); Calcium 9.7 mg/dL (8.4-10.2); Carbon Dioxide 26 mmol/L (22-29); Chloride 105 mmol/L (96-108); Estimated Glomerular Filt Rate > 60; Glucose Random 93 mg/dL (60-115); HBS Num1 39.37 mIU/mL (0-7.99); HBc Num1 0.07 S/CO (0.00-0.79); HBsAGNum1 0.27 S/CO (0.00-0.99); HIV AB/AG Nonreactive (Nonreactive); HIV Num 1 0.04 S/CO (0.00-0.99); Hepatitis B Core Antibody Nonreactive (Nonreactive); Hepatitis B Surface Antigen Negative (Negative); Sodium 140 mmol/L (135-145); ~HepC Num1 0.15 S/CO (0.00-0.79); ~Hepatitis B Surface Antibody REACTIVE (Nonreactive); ~Hepatitis C Antibody Nonreactive (Nonreactive)
[2023-12-19 12:46] LABS: Albumin Level 4.7 g/dL (3.5-5.0); Alkaline Phosphatase 51 U/L (39-117); Cholesterol 169 mg/dL (<200); HDL Cholesterol 49 mg/dL (>40); LDL Cholesterol Calculated 104 mg/dL (<100); Total Protein 7.4 g/dL (6.5-8.0); Triglycerides 84 mg/dL (<150)
[2023-12-19 12:49] LABS: Free T4 (Free Thyroxine) 0.98 ng/dL (0.71-1.85); Thyroid Stimulating Hormone 0.88 uIU/mL (0.32-4.0); Vitamin D 25-OH Total 22.8 ng/mL (>30)
[2023-12-19 13:16] LABS: CT PCR NOT DETECTED (Not Detect.); NG PCR NOT DETECTED (Not Detect.)
[2023-12-21 08:56] LABS: Herpes Simplex Type 2 IgG <0.90 index
[2023-12-21 08:57] LABS: RPR Rapid Plasma Reagin NON-REACTIVE (NON-REACTIVE)
== END 2023-12-19 10:31 | disposition home or self-care (01) ==
LOC: HO.HHCL 10:30
PROVIDERS: Visit Provider Family Medicine
DX: K12.1 Other forms of stomatitis (principal)
CPT/HCPCS: 0353U; 80048; 80061; 80076; 82306; 83036; 84439; 84443; 85025; 86592; 86695; 86696; 86704; 86706; 86803; 87340; 87389

== ENCOUNTER 2025-06-03 14:29 | Outpatient (REF) | payer MEDICAID, SELFPAY ==
--- NOTE | ~2025-06-03 | XR_ITS ---
EXAMINATION: XR CERVICAL SPINE CLINICAL INFORMATION: pain COMPARISON: 09/17/2023. TECHNIQUE: 5 views of the cervical spine were obtained, including bilateral oblique views. FINDINGS: Normal lordosis. No scoliosis. No subluxations. No fracture, compression deformity, or suspicious bone lesion. C1-2 articulation and craniocervical junction are intact and aligned. Normal facet alignment. Disc spaces appear normal. No significant bony neural foraminal narrowing on either side. The pre and paravertebral soft tissues are normal. The lung apices are clear. XR/XR cervical spine 4V IMPRESSION: Essentially normal cervical spine examination. Electronically signed by: Javier Hernandez MD 06/03/2025 02:51 PM EST
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
--- OUTSIDE RECORDS SUMMARY | 2025-06-03 20:24 | XMS_ITS | Encounter Summary ---
Author Organization [email or web address] Address [address] [facility] [address] [place] [address] Care Team Providers Care Email Marketing Executive Name Role Phone Samantha Dubon CHARLES Primary Care Provider [phone] Encounter Details Date Type Department Care Team (Latest Contact Info) Description 06/03/2025 Travel Social History Tobacco Use Types Packs/Day Years Used Date Smoking Tobacco: Former Cigarettes Smokeless Tobacco: Never Alcohol Use Standard Drinks/Week Comments Never 0 [...] AM EDT documented as of this encounter Plan of Treatment Not on file documented as of this encounter Visit Diagnoses Not on filedocumented in this encounter Additional Health Concerns Assessment Noted Time PHQ-9 Depression Total Score: 0 01/12/20 9:35 AM EDT documented as of this encounter Care Teams Email Marketing Executive Relationship Specialty Start Date End Date Samantha Dubon NP [address] [place] [phone] PCP - General Family Medicine 08/02/23 documented as of this encounter
--- OUTSIDE RECORDS SUMMARY | 2025-06-03 20:24 | XMS_ITS | Encounter Summary ---
Author Organization [employer] Address [address] [place] [address] [address]t [place] [address] Care Team Providers Care Neurology Hospitalist Name Role Phone Samantha Dubon NP Primary Care Provider [phone] Reason for Visit * Reason Comments Med Refill Encounter Details Date Type Department Care Team ([facility] st Contact Info) Description 11/01/2023 Refill [facility] [address] [place], [place] [phone] Samantha Dubon NP [address] [place] [address] Social History Tobacco Use Types Packs/Day Years Used Date Smoking Tobacco: Former Cigarettes Smokeless Tobacco: Never Alcohol Use Standard Drinks/Week Comments Never 0 (1 standard drink = 0.6 oz pur e alcohol) Sex and Gender Information Value Date Recorded Sex Assigned at Male 04/25/2022 10:15 AM EDT Legal Sex Male 10:15 AM EDT Gender Identity Male 04/25/2022 10:15 AM EDT Sexual Orientation Straight 04/25/2022 10 :15 AM EDT documented as of this encounter Plan of Treatment Not on file documented as of this encounter Visit Diagnoses Not on filedocumented in this encounter Care Teams Neurology Hospitalist Relationship Specialty Start Date End Date Samantha Dubon NP [address] [place] [address] PCP - General Family Medicine 08/02/23 documented as of this encounter
== END 2025-06-03 14:30 | disposition home or self-care (01) ==
LOC: HO.HHCX 14:29
PROVIDERS: Visit Provider Internal Medicine
DX: M54.2 Cervicalgia (principal)
CPT/HCPCS: 72050

== ENCOUNTER → 2025-06-03 14:30 | Outpatient (BNV) | payer MEDICAID, SELFPAY | PROVIDERS: Visit Provider Radiology Diagnostic Radiology | DX: M54.2 Cervicalgia (principal) | CPT/HCPCS: 72050 ==